=== PATIENT | female | born 1985 | race American Indian/Alaskan Native ===

== ENCOUNTER 2016-11-14 03:55 | Emergency (ER) | payer MEDICARE ==
[2016-11-14 04:37] LABS: Hematocrit 40.6 % (30.3-42.9); Hemoglobin 12.9 gm/dl (10.1-14.3); Mean Corpuscular HGB Conc 32 % (30-34); Mean Corpuscular Volume 80 fl (79-97); Platelet Count 130 K/mm3 (140-440); Red Blood Count 5.09 M/mm3 (3.65-5.03); White Blood Count 4.1 K/mm3 (4.5-11.0)
[2016-11-14 04:42] LABS: Mean Corpuscular Hemoglobin 25 pg (28-32)
[2016-11-14 04:57] LABS: Alanine Aminotransferase 51 units/L (7-56); Albumin 4.2 g/dL (3.9-5); Alkaline Phosphatase 55 units/L (35-129); Anion Gap 17 mmol/L; BUN/Creatinine Ratio 18.33; Bilirubin,Total 0.4 mg/dL (0.1-1.2); Blood Urea Nitrogen 11 mg/dL (7-17); Calcium 9.2 mg/dL (8.4-10.2); Carbon Dioxide 27 mmol/L (22-30); Chloride 98.6 mmol/L (98-107); Glucose 113 mg/dL (65-100); Lipase 53 units/L (13-60); Potassium 3.7 mmol/L (3.6-5.0); Sodium 139 mmol/L (137-145); Total Protein 8.6 g/dL (6.3-8.2)
[2016-11-14 05:53] LABS: Anisocytosis 1+; Basophils % (Manual) 0 % (0.0-1.8); Blastocytes % (Manual) 0 %; Diff Status Complete; Hypochromasia 1+
--- NOTE | 2016-11-14 06:23 | Emergency Department Report ---
ED General Adult HPI - General Chief complaint: Abdominal Pain Stated complaint: UPPER STOMACH AND BACK AND CHEST PAIN Time Seen by Provider: 11/14/16 06:21 Source: patient Mode of arrival: Ambulatory Limitations: No Limitations - History of Present Illness Initial comments: The patient describes right upper quadrant and back pain which is postprandial for greater than 1 week. She does not complain of pain now at all. She states the pain usually occurs at hour or 2 after eating when she is laying down. She has a positive family history of gallstones. She also states that she feels the pain under her right breast and in back. She's had occasional cough but no dyspnea. She denies morning but has had some nausea. There's been no recent fever or chills. She denies any ongoing medical problems. No pleuritic chest pain no leg pain or swelling. -: week(s) Location: chest, back, abdomen Radiation: non-radiation Severity scale (0 -10): 8 Quality: aching Consistency: now resolved Improves with: none Worsens with: eating Associated Symptoms: denies other symptoms, nausea/vomiting (some nausea but no recent vomiting) Treatments Prior to Arrival: none - Related Data Previous Rx's Medication Instructions Recorded Last Taken Type Ciprofloxacin HCl [Ciprofloxacin 500 mg PO Q12HR #14 tab 11/14/16 Unknown Rx TAB] traMADol [Ultram] 50 mg PO Q6HR PRN #10 tablet 11/14/16 Unknown Rx Allergies Allergy/AdvReac Type Severity Reaction Status Date / Time No Known Allergies Allergy Verified 03/25/14 10:28 ED Review of Systems ROS: Stated complaint: UPPER STOMACH AND BACK AND CHEST PAIN Other details as noted in HPI Constitutional: denies: chills, fever Eyes: denies: eye pain, eye discharge, vision change ENT: denies: ear pain, throat pain Respiratory: denies: cough, shortness of breath, wheezing Cardiovascular: as per HPI. denies: palpitations Endocrine: no symptoms reported Gastrointestinal: as per HPI. denies: diarrhea Genitourinary: denies: urgency, dysuria, discharge Musculoskeletal: as per HPI. denies: joint swelling, arthralgia Skin: denies: rash, lesions Neurological: denies: headache, weakness, paresthesias Psychiatric: denies: anxiety, depression Hematological/Lymphatic: denies: easy bleeding, easy bruising ED Past Medical Hx - Past Medical History Previous Medical History?: Yes Hx Seizures: Yes (during hospitlization from [facility]) - Surgical History Past Surgical History?: Yes Additional Surgical History: hip surgery p [facility] last january - Social History Smoking Status: Never Smoker Substance Use Type: None - Medications Home Medications: Home Medications Medication Instructions Recorded Confirmed Last Taken Type Ciprofloxacin HCl [Ciprofloxacin 500 mg PO Q12HR #14 tab 11/14/16 Unknown Rx TAB] traMADol [Ultram] 50 mg PO Q6HR PRN #10 tablet 11/14/16 Unknown Rx ED Physical Exam - General Limitations: No Limitations General appearance: alert, in no apparent distress - Head Head exam: Present: atraumatic, normocephalic - Eye Eye exam: Present: normal appearance, PERRL, EOMI. Absent: scleral icterus - ENT ENT exam: Present: normal exam, mucous membranes moist - Neck Neck exam: Present: normal inspection - Respiratory Respiratory exam: Present: normal lung sounds bilaterally. Absent: respiratory distress - Cardiovascular Cardiovascular Exam: Present: regular rate, normal rhythm. Absent: systolic murmur, diastolic murmur, rubs, gallop - GI/Abdominal GI/Abdominal exam: Present: soft, normal bowel sounds. Absent: distended, tenderness, guarding, rebound, rigid - Extremities Exam Extremities exam: Present: normal inspection - Back Exam Back exam: Present: normal inspection - Neurological Exam Neurological exam: Present: alert, oriented X3, CN II-XII intact. Absent: motor sensory deficit - Psychiatric Psychiatric exam: Present: normal affect, normal mood - Skin Skin exam: Present: warm, dry, intact, normal color. Absent: rash ED Course Vital Signs 11/14/16 11/14/16 04:04 05:24 Temperature 98.4 F 98.4 F Pulse Rate 83 92 H Respiratory 20 16 Rate Blood Pressure 146/97 Blood Pressure 131/84 [Left] O2 Sat by Pulse 100 97 Oximetry - Reevaluation(s) Reevaluation #1: The patient's ultrasound report to me is consistent with chronic cholecystitis. The patient is informed. She will be treated with antibiotics and referral to GI/surgery. Return instruction and criteria reviewed. 11/14/16 09:11 Reevaluation #2: Patient is noted to have a few bands and mild thrombocytopenia. However she has no fever. On reexamination she is resting comfortably. She is certainly nontoxic. She is appropriate for outpatient management. 11/14/16 09:15 ED Medical Decision Making - Lab Data Result diagrams: 11/14/16 04:24 11/14/16 04:24 Laboratory Results - last 24 hr 11/14/16 11/14/16 04:24 04:24 WBC 4.1 L RBC 5.09 H Hgb 12.9 Hct 40.6 MCV 80 MCH 25 L MCHC 32 RDW 14.0 Plt Count 130 L Add Manual Diff Complete Total Counted 100 Seg Neuts % (Manual) 48.0 Band Neutrophils % 9.0 Lymphocytes % (Manual) 31.0 Reactive Lymphs % (Man) 0 Monocytes % (Manual) 7.0 Eosinophils % (Manual) 3.0 Basophils % (Manual) 0 Metamyelocytes % 2.0 Myelocytes % 0 Promyelocytes % 0 Blast Cells % 0 Nucleated RBC % Not Reportable Seg Neutrophils # Man 2.0 Band Neutrophils # 0.4 Lymphocytes # (Manual) 1.3 Abs React Lymphs (Man) 0.0 Monocytes # (Manual) 0.3 Eosinophils # (Manual) 0.1 Basophils # (Manual) 0.0 Metamyelocytes # 0.1 Myelocytes # 0.0 Promyelocytes # 0.0 Blast Cells # 0.0 WBC Morphology Not Reportable Hypersegmented Neuts Not Reportable Hyposegmented Neuts Not Reportable Hypogranular Neuts Not Reportable Smudge Cells Not Reportable Toxic Granulation Not Reportable Toxic Vacuolation Not Reportable Dohle Bodies Not Reportable Pelger-Huet Anomaly Not Reportable Corey Rods Not Reportable Platelet Estimate Appears normal Clumped Platelets Not Reportable Plt Clumps, EDTA Not Reportable Large Platelets Not Reportable Giant Platelets Not Reportable Platelet Satelliting Not Reportable Plt Morphology Comment Not Reportable RBC Morphology Not Reportable Dimorphic RBCs Not Reportable Polychromasia Not Reportable Hypochromasia 1+ Poikilocytosis Not Reportable Anisocytosis 1+ Microcytosis Not Reportable Macrocytosis Not Reportable Spherocytes Not Reportable Pappenheimer Bodies Not Reportable Sickle Cells Not Reportable Target Cells Not Reportable Tear Drop Cells Not Reportable Ovalocytes Not Reportable Helmet Cells Not Reportable [place] Bodies Not Reportable [place] Rings Not Reportable [place] Cells Not Reportable Bite Cells Not Reportable Crenated Cell Not Reportable Elliptocytes Not Reportable Acanthocytes (Spur) Not Reportable Rouleaux Not Reportable Hemoglobin C Crystals Not Reportable Schistocytes Not Reportable Malaria parasites Not Reportable Jass Bodies Not Reportable Hem Pathologist Commnt No Sodium 139 Potassium 3.7 Chloride 98.6 Carbon Dioxide 27 Anion Gap 17 BUN 11 Creatinine 0.6 L Estimated GFR > 60 BUN/Creatinine Ratio 18.33 Glucose 113 H Calcium 9.2 Total Bilirubin 0.4 AST 36 ALT 51 Alkaline Phosphatase 55 Total Protein 8.6 H Albumin 4.2 Albumin/Globulin Ratio 1.0 Lipase 53 - Radiology Data Radiology results: report reviewed interpreted by me: Gallbladder with sludge but no stones. Thickened wall but no pericholecystic fluid. No hepatic lesions noted. Critical care attestation.: If time is entered above; I have spent that time in minutes in the direct care of this critically ill patient, excluding procedure time. ED Disposition Clinical Impression: Chronic cholecystitis, Thrombocytopenia Disposition: DISCHARGED TO HOME OR SELFCARE Is pt being admited?: No Does the pt Need Aspirin: No Condition: Stable Instructions: Abdominal Pain (ED), Cholecystitis (ED) Additional Instructions: Return if fever difficulty in breathing chills or any significant abdominal pain or vomiting. Rx as directed. Follow up and further evaluation of what appears to be a gallbladder problem is recommended. See referrals. Prescriptions: Ciprofloxacin HCl [Ciprofloxacin TAB] 500 mg PO Q12HR #14 tab traMADol [Ultram] 50 mg PO Q6HR PRN #10 tablet PRN Reason: Pain Referrals: WOO IBARRA MD [Primary Care Provider] - 3-5 Days SYED DONAHUE MD [Staff Physician] - 2-3 Days [facility] [Provider Group] - 2-3 Days [facility] [Provider Group] - 24 Hours Time of Disposition: 09:14
[2016-11-14 06:29] LABS: Bilirubin,Urine NEG (Negative); Blood,Urine NEG (Negative); Ketones,Urine NEG (Negative); Leukocyte Esterase,Urine NEG (Negative); Mucus,Urine 1+ /HPF; Nitrite,Urine NEG (Negative); Protein,Urine <15 mg/dL mg/dL (Negative)
--- NOTE | 2016-11-14 08:25 | XRay Report ---
CHEST 2 VIEWS INDICATION: Cough. COMPARISON: None similar. FINDINGS: PA and lateral chest radiographs demonstrate normal cardiomediastinal silhouette. Clear lungs. Lower cervical-upper thoracic bilateral pedicle rods and screws posterior fusion hardware partially imaged. Hair/radha artifact also noted. CONCLUSION: No acute chest process, as described. Thank you for the opportunity to participate in this patient's care.
--- NOTE | 2016-11-14 08:31 | Ultrasound Report ---
ULTRASOUND ABDOMEN LIMITED INDICATION: RUQ and back pain. COMPARISON: 05/17/2013 CT. FINDINGS: Right upper quadrant sonography demonstrates mild diffuse hepatic echogenic coarsening with grossly preserved contours. No definite focal suspicious lesions or biliary dilatation. Mild gallbladder sludge towards the neck noted. No gallstones, pericholecystic fluid or positive sonographic Sosa's sign. Gallbladder wall thickness is 4.4 mm. Common bile duct is 3.5 mm. Imaged pancreas, nonaneurysmal abdominal aorta, IVC and the right kidney appear within normal limits. CONCLUSION: Fatty liver, mild gallbladder sludge and exaggerated gallbladder wall thickness without other acute sonographic abnormality, as described. Please correlate. Thank you for the opportunity to participate in this patient's care.
[2016-11-14] MEDS ORDERED: ROCEPHIN IM ONE (08:56)
[2016-11-14] MEDS ORDERED: XYLOCAINE 1% MPF 5 mL INFILTRATI ONE (08:56)
[2016-11-14 09:45] VITALS: BP 130/85
== END 2016-11-14 09:45 | disposition home or self-care (01) ==
LOC: ED 03:55
DX: K81.1 Chronic cholecystitis (principal); D69.6 Thrombocytopenia, unspecified; Z98.890 Other specified postprocedural states
CPT/HCPCS: 36415; 71020; 76705; 80053; 81001; 81025; 83690; 85007; 85025; 99284